=== PATIENT | female | born 1970 | race Caucasian/White ===

== ENCOUNTER 2019-06-26 11:13 | Inpatient (IN) ==
--- NOTE | 2019-06-25 17:05 | EKG Report ---
Test Performed on : 06/25/2019 4:56:43 PM Test Reason : PAT Blood Pressure : / mmHG Vent. Rate : 059 BPM Atrial Rate : 059 BPM P-R Int : 166 ms QRS Dur : 098 ms QT Int : 448 ms P-R-T Axes : 080 081 073 degrees QTc Int : 443 ms Sinus bradycardia. Anterior infarct (cited on or before 19-APR-2011) Abnormal ECG When compared with ECG of 28-NOV-2015 18:23, Vent. rate has decreased BY 30 BPM Confirmed by Gold Echavarria MD ([id number]) on 06/26/2019 7:45:42 PM
[2019-06-25 17:44] LABS: HEMATOCRIT 45.2 % (37.0-47.0); HEMOGLOBIN 14.9 g/dL (12.0-16.0); MCH 29.6 PG (27-31); MCV 89.7 FL (81-99); MPV 9.3 FL (7.4-10.4); RBC 5.04 XMIL (4.2-5.4); RDW 11.8 % (11.5-14.5); WBC 4.96 X1000 (4.8-10.8)
[2019-06-25 18:12] LABS: AGAP 13; BUN 9 mg/dL (8-22); CALCIUM 9.6 mg/dL (8.8-10.2); CHLORIDE 94 mmol/L (98-107); COSMO 270; CREATININE 0.5 mg/dL (0.5-0.9); ESTIMATED GFR > 60; GLUCOSE 91 mg/dL (70-104); POTASSIUM 3.1 mmol/L (3.5-5.1); SODIUM 136 mmol/L (136-145); TCO2 29 mmol/L (25-35)
[2019-06-26] MEDS ORDERED: DIPRIVAN 1% ONE (11:32)
[2019-06-26] MEDS ORDERED: XYLOCAINE-MPF 2% ONE (11:34)
[2019-06-26] MEDS ORDERED: QUELICIN (DOSE) ONE (11:35)
[2019-06-26] MEDS ORDERED: KEFZOL 1 GM/D5W 1 GM/50 ML IVPB ONE (11:50)
[2019-06-26] MEDS ORDERED: LR 1,000 ML ONE ×2 (11:50→15:14)
[2019-06-26] MEDS ORDERED: VERSED ONE ×2 (12:27→12:45)
[2019-06-26] MEDS ORDERED: NITROGLYCERIN 50 MG/D5W 0 MG/0 ML IV.SOLN ONE (12:34)
[2019-06-26] MEDS ORDERED: NEO-SYNEPHRINE ONE (12:38)
[2019-06-26] MEDS ORDERED: FENTANYL ONE (12:44)
[2019-06-26] MEDS ORDERED: HEPARIN ONE (12:48)
[2019-06-26] MEDS ORDERED: KEFZOL ONE (12:48)
[2019-06-26] MEDS ORDERED: MARCAINE 0.25% PF/EPI 1:200,000 ONE (12:48)
[2019-06-26] MEDS ORDERED: NS 500 ML ONE (12:49)
[2019-06-26] MEDS ORDERED: NS 1,000 ML ONE (12:49)
[2019-06-26] MEDS ORDERED: XYLOCAINE 1% ONE (12:49)
[2019-06-26] MEDS ORDERED: HEPARIN (DOSE) ONE ×2 (13:24)
[2019-06-26] MEDS ORDERED: DECADRON ONE (13:54)
[2019-06-26] MEDS ORDERED: ZOFRAN ONE (13:54)
[2019-06-26] MEDS ORDERED: SODIUM CHLORIDE 0.9% 10 ML ONE (13:56)
[2019-06-26] MEDS ORDERED: BRIDION ONE (14:19)
[2019-06-26] MEDS ORDERED: VENTOLIN HFA ONE (14:39)
--- NOTE | 2019-06-26 14:58 | OPERATIVE NOTE ---
PROCEDURE DATE: 06/26/2019 PROCEDURE PERFORMED: Left carotid endarterectomy with patch angioplasty. SURGEON: Antonio Meza MD. SCHOOL SOCIAL WORKER: Vince Nieves RN. PREOPERATIVE DIAGNOSIS: High-grade symptomatic left internal carotid stenosis. POSTOP DIAGNOSIS: High-grade symptomatic left internal carotid stenosis. DESCRIPTION OF PROCEDURE: Satisfactory general endotracheal anesthesia was achieved. The left side of the neck was prepped and draped in a sterile fashion. The head was turned to the right slightly. We made a transverse lorenzo, anesthetized the skin with 0.25 Marcaine with epinephrine, incised the skin and carried our incision through the skin through the subcutaneous tissue. We achieved satisfactory hemostasis with electrocautery. We then cauterized through the platysma. We stayed along the anterior border of the sternocleidomastoid muscle crossing facial vein was ligated and divided with 3-0 silk. The vein was ligated and divided. This then exposed the common carotid surrounded with an umbilical tape, 5000 units of heparin were given. We then dissected until we exposed the internal carotid, surrounded the small vessel loop. The external carotid was surrounded with a large vessel loop and the superior thyroid was surrounded with a small vessel loop. By this time the heparin had circulated for more than 3 minutes. We then occluded flow in the branch vessels with the vessel loops and clamped off the common carotid. Under 2 1/2 loupe magnification we incised the common with 11 blade and extended with the Holcomb scissors. We came through the significant calcific plaque that was very stenotic into normal size internal carotid. We placed a 4 with a 3 mm Sundt shunt with the clamp time being approximately 2 minutes. Then under 2 1/2 loupe magnification we raised the plaque out of the common and transected with the Holcomb scissors. We then used a Kaleva tool to raise it out of 1st the external doing an eversion endarterectomy and then the internal. We had a fairly nice taper point but we tacked the intima with two 7-0 Prolenes. We irrigated out the endarterectomized vessel with heparinized saline and removed all leaflets we could identify. We then used a 1 x 6 bovine patch and sutured it to the artery using 6-0 Prolene running stitch. As we neared completion we back bled the external, removed the shunt from the internal, back bleeding was good. We clamped off the internal with a profunda clamp. We then removed the shunt from the common and fore bled that and once again clamped off the common with a DeBakey clamp. We then finished the patch angioplasty. We held the internal occluded, opened the external then the common and after 5 seconds opened the internal. Flow was established. A good pulse was noted within the internal. The patch angioplasty was satisfactorily hemostatic. We irrigated out the wound, placed a Brandon drain within the wound and secured at the skin with a 2-0 silk. We then proceeded to close the platysma with a running 3-0 Polysorb. We once again injected 0.25 Marcaine with epinephrine along the skin to achieve local anesthesia the incision. We then closed the skin with a 4-0 Polysorb subcuticular stitch. Sterile dressing was applied. She tolerated it well, was awakening at the time of this dictation. cc: Antonio Meza MD MTDD
[2019-06-26] MEDS ORDERED: OFIRMEV 1000 MG/ISOTONIC SOLN 1,000 MG/100 ML BOTTLE ONE (15:14)
[2019-06-26] MEDS ORDERED: ULTRAM PO PRN (17:20)
[2019-06-26] MEDS: LR 1,000 ML IV SCH (18:01)
[2019-06-26] MEDS: OFIRMEV 1000 MG/ISOTONIC SOLN 1,000 MG/100 ML BOTTLE IV SCH ×3 (18:04→19:59)
[2019-06-26] MEDS: SEROQUEL PO SCH (20:00)
[2019-06-26] MEDS: SYMBICORT 160/4.5 MICROGM INHALER INH SCH (20:45)
[2019-06-27] MEDS: OFIRMEV 1000 MG/ISOTONIC SOLN 1,000 MG/100 ML BOTTLE IV SCH (03:23)
[2019-06-27] MEDS: LR 1,000 ML IV SCH (04:57)
[2019-06-27] MEDS ORDERED: LR 1,000 ML IV SCH (07:33)
--- NOTE | 2019-06-27 07:43 | GENERAL SURGERY PROGRESS NOTE ---
DATE: 06/27/2019 She is postoperative day 1 after left carotid endarterectomy. This morning she is generally well. She did not sleep very much she says. OBJECTIVE: She is afebrile, heart rate is 61, blood pressure is 110/63. Her trachea is in the midline. No significant swelling is present in her neck. She is neurologically fine, moves all extremities and talks clearly. PLAN: She did take liquids satisfactorily. The plan today will be to remove her drain, advance her diet and transfer to a regular room when it is available. cc: Antonio Meza MD
[2019-06-27] MEDS: TENORMIN PO SCH (08:19)
[2019-06-27] MEDS: NORVASC PO SCH (08:20)
[2019-06-27] MEDS: ASPIRIN EC PO SCH (08:59)
[2019-06-27] MEDS: NORCO-7.5 PO PRN ×3 (08:59→20:03)
[2019-06-27] MEDS ORDERED: ASPIRIN PO SCH (09:00)
[2019-06-27] MEDS: SYMBICORT 160/4.5 MICROGM INHALER INH SCH ×2 (09:18→19:36)
[2019-06-27] MEDS: SPIRIVA INH SCH (09:19)
[2019-06-27] MEDS ORDERED: HYDROCHLOROTHIAZIDE PO SCH (15:30)
[2019-06-27] MEDS: SEROQUEL PO SCH (20:03)
[2019-06-28] MEDS: NORCO-7.5 PO PRN (04:11)
[2019-06-28] MEDS: SYMBICORT 160/4.5 MICROGM INHALER INH SCH (08:23)
[2019-06-28] MEDS: SPIRIVA INH SCH (08:23)
[2019-06-28] MEDS: ASPIRIN EC PO SCH (08:35)
[2019-06-28] MEDS: TENORMIN PO SCH (08:42)
[2019-06-28] MEDS: NORVASC PO SCH (08:42)
[2019-06-28 08:50] VITALS: BP 123/69
--- NOTE | 2019-06-28 10:15 | GENERAL SURGERY PROGRESS NOTE ---
DATE: 06/28/2019 Postop day 2 after left carotid endarterectomy. She is doing well. Neurologically, she is fine. Her trachea is in the midline. No significant neck swelling. We will discharge her today. She will resume her aspirin at home, and her other medications. She will return to see me in the office in a week. Activity and wound care were discussed. cc: Antonio Meza MD
== END 2019-06-28 10:55 | disposition home or self-care (01) | DRG 39 ==
LOC: SURHOLD 11:13 → EDSTATUS 14:30 → ICU 17:05
PROVIDERS: ADMIT Surgery; ATTEND Surgery